=== PATIENT | male | born 1970 | race African-American/Black ===

== ENCOUNTER 2024-11-08 20:52 | Emergency (ER) | payer OTHER ==
[~2024-11-08] VITALS: Ht 167.6 cm; Wt 77.1 kg
[2024-11-08 21:02] VITALS: BP 156/99; TEMP 98; O2SAT 99
[2024-11-08] MEDS ORDERED: ACETAMINOPHEN ES 500 MG TABLET ONE (22:25)
[2024-11-08] MEDS ORDERED: KETOROLAC TROMETHAMINE INJ 30 MG/ML VIAL ONE (22:25)
[2024-11-08] MEDS ORDERED: METHOCARBAMOL (500MG) 500 MG TABLET ONE (22:26)
[2024-11-08] MEDS: KETOROLAC TROMETHAMINE INJ 30 MG/ML VIAL IM ONE (22:35)
[2024-11-08] MEDS: ACETAMINOPHEN ES 500 MG TABLET PO ONE (22:36)
[2024-11-08] MEDS: METHOCARBAMOL (750MG) 750 MG TABLET PO SCH (22:36)
[2024-11-08] MEDS ORDERED: METH-649 PO (23:12)
[2024-11-08] MEDS ORDERED: ACET-2030 PO (23:12)
[2024-11-08] MEDS ORDERED: IBUP-1957 PO (23:12)
[2024-11-08] MEDS ORDERED: LIDO30AD10 TP (23:12)
== END 2024-11-09 03:10 | disposition home or self-care (01) ==
LOC: ER 21:10
DX: M25.512 Pain in left shoulder (principal); M25.522 Pain in left elbow; M54.50 Low back pain, unspecified; F17.200 Nicotine dependence, unspecified, uncomplicated; V49.49XA Driver injured in collision with other motor vehicles in traffic accident, initial encounter; Y93.89 Activity, other specified; Y92.488 Other paved roadways as the place of occurrence of the external cause; Y99.2 Volunteer activity
CPT/HCPCS: 99284; 96372; 72100; 73030; J1885